=== PATIENT | female | born 2000 | race Two or more races ===

== ENCOUNTER 2025-08-31 16:10 | Emergency (ER) | payer OTHER ==
[~2025-08-31] VITALS: Ht 157.5 cm; Wt 62.6 kg
[2025-08-31 17:50] VITALS: BP 113/69; O2SAT 99
[2025-08-31] MEDS ORDERED: AEROBIKA1 EACH (17:50)
[2025-08-31 20:17] LABS: BASO % 0.5 % (0.1-1.2); EOS # 0.14 (0.04-0.54); EOS % 1.4 % (0.7-7.0); LYMPH # 3.55 (1.18-3.74); LYMPH % 35.2 % (19.3-53.1); MEAN PLATELET VOLUME 11.50 fl (9.4-12.4); MONO # 0.70 (0.24-0.82); MONO % 6.9 % (4.7-12.5); NEUT # 5.63 (1.56-6.13); NEUT % 55.9 % (34.0-71.1); RED CELL DISTRIBUTION WIDTH 13.2 % (11.6-14.4)
[2025-08-31 20:24] LABS: ERYTHROCYTE SEDIMENTATION RATE 16 mm/hr (0-20)
[2025-08-31 20:40] LABS: INR 1.09
[2025-08-31 20:50] LABS: ALT/SGPT 25 U/L (12-78); AST/SGOT 23 U/L (15-37); BILIRUBIN TOTAL 0.51 mg/dL (0.3-1.2); BUN CREA RATIO 18 (7.0-25.0); CREATININE SERUM 0.84 mg/dL (0.55-1.02); GFR 82.61; GLOBULINA 4.3 G/DL (2.4-3.5); GLUCOSE FASTING 81 mg/dL (65-100); OSMOLALITY SERUM 279 MOSM/KG (275-295)
[2025-08-31 20:55] LABS: HCG QUANTITATIVE < 1 mUI/mL (1-3)
== END 2025-08-31 22:35 | disposition home or self-care (01) ==
LOC: ER 16:10
PROVIDERS: Physician Assistant Medical
DX: T83.32XA Displacement of intrauterine contraceptive device, initial encounter (principal)